=== PATIENT | female | born 1955 | race African-American/Black ===

== ENCOUNTER 2022-12-04 08:02 | Day surgery (SDC) | payer OTHER, MEDICAID ==
[2022-12-04] MEDS ORDERED: Lidocaine 1% PF 5 ML VIAL ONE ×2 (09:20→10:06)
[2022-12-04] MEDS ORDERED: Sodium Bicarbonate 2.5 MEQ/5 ML VIAL ONE ×2 (09:20→10:06)
[2022-12-04 11:23] VITALS: BP 122/60; TEMP 97.6
== END 2022-12-04 11:25 | disposition home or self-care (01) ==
LOC: CSHRAD 08:02 → EDSTATUS 09:00 → EDBD 09:00 → CSHRAD 11:25
PROVIDERS: ATTEND Neurological Surgery
PROC: B02BYZZ Computerized Tomography (CT Scan) of Spinal Cord using Other Contrast (ICD-10-PCS; principal; 2022-12-04)
DX: M47.816 Spondylosis without myelopathy or radiculopathy, lumbar region (principal); M53.3 Sacrococcygeal disorders, not elsewhere classified; M48.062 Spinal stenosis, lumbar region with neurogenic claudication; F41.9 Anxiety disorder, unspecified; E78.00 Pure hypercholesterolemia, unspecified; E11.9 Type 2 diabetes mellitus without complications; I10 Essential (primary) hypertension; K63.9 Disease of intestine, unspecified; Z98.890 Other specified postprocedural states; Z79.899 Other long term (current) drug therapy; Z79.84 Long term (current) use of oral hypoglycemic drugs; Z79.82 Long term (current) use of aspirin
CPT/HCPCS: 72110; 72131

== ENCOUNTER 2023-03-31 12:42 | Outpatient (CLI) | payer OTHER | END 2023-03-31 12:43 | disposition home or self-care (01) | LOC: CSHMRI 12:42 | PROVIDERS: ATTEND Neurological Surgery | DX: M47.12 Other spondylosis with myelopathy, cervical region (principal); M43.8X2 Other specified deforming dorsopathies, cervical region | CPT/HCPCS: 72141 ==

== ENCOUNTER 2023-04-02 09:20 | Emergency (ER) | payer OTHER ==
[2023-04-02] MEDS ORDERED: Ketorolac Tromethamine 30 MG/ML VIAL ONE (10:21)
[2023-04-02] MEDS ORDERED: Gabapentin 100 MG CAP PO SCH (10:30)
[2023-04-02 10:43] LABS: Bilirubin Neg (Negative); Blood, Urine Negative (Negative); Clarity Clear (Clear); Glucose, Urine (Dipstick) Normal (Negative); Ketone, Urine Negative (Negative); Leukocyte 25 (Negative); Nitrite Negative (Negative); Protein, Urine (Dipstick) Negative (Neg-Trace); Specific Gravity, Urine 1.005 (1.005-1.030); Urobilinogen Normal mg/dL (Less than 2)
[2023-04-02 11:07] LABS: Bacteria/HPF 1+ HPF (None Seen); CAUTI Indications for Culture Alt mental st,lethar
[2023-04-02 11:08] LABS: Urine Culture Reflex No No
== END 2023-04-02 11:33 | disposition home or self-care (01) ==
LOC: CSHERS 09:20
DX: M54.16 Radiculopathy, lumbar region (principal); F17.210 Nicotine dependence, cigarettes, uncomplicated; I10 Essential (primary) hypertension
CPT/HCPCS: 81001; 96372; 99283; J1885